=== PATIENT | female | born 1985 | race Two or more races ===

== ENCOUNTER 2025-03-17 03:23 | Emergency (ER) | payer MEDICAID, SELFPAY ==
[2025-03-17 03:24] VITALS: BMI 32.5
[2025-03-17 03:55] VITALS: BP 143/80; PULSE 62; RESP 18; TEMP 36.8; O2SAT 100
[2025-03-17] MEDS: KETOROLAC INJ 60 MG/2 ML VIAL IM (04:33)
--- NOTE | 2025-03-17 05:53 | EDNOTE_ITS ---
<Statement entered by Kimberlee Espinosa MD - 03/18/25 04:32> As co-signing physician, I was present and available for consult prn. I concur with the plan and care as documented by the midlevel provider. Upper Respiratory Inf. RME/HPI General Stated Complaint: THROAT PAIN X 4 DAYS Time Seen by Provider: 03/17/25 04:08 Arrival date/time: 03/17/25 03:23 40F with no significant PMH presents to ED with several days of sore throat. Patient tested positive for strep at the clinic and has been on ABX. Limitations: no limitations Related Data Previous Rx's ?Medication ?Instructions ?Recorded cyclobenzaprine 10 mg tablet 10 mg PO TID #14 tabs ibuprofen 600 mg tablet 600 mg PO QID PRN inflammati on #20 09/14/18 tabs ferrous sulfate 324 mg (65 mg 324 mg PO BID #60 tabs 0 07/16/22 iron) tablet,delayed release Allergies Allergy/AdvReac Type Severity Reaction Status Date / Time No Known Allergies Allergy Verified 07/16/22 07:48 Review of Systems Review of Systems Systems Reviewed: All systems reviewed, normal except as documented Constitutional Constitutional: Reports system reviewed and no additional complaints, except as documented, Denies fever(s) and Denies headache(s) ENT Ears, Nose, Mouth, and Throat: Reports as per HPI, Denies disequilibrium, Denies headache(s) and Reports sore throat Cardiovascular Cardiovascular: Reports system reviewed and no additional complaints, except as documented, Denies chest pain and Denies dyspnea Respiratory Respiratory: Reports system reviewed and no additional complaints, except as documented, Denies cough and Denies dyspnea Gastrointestinal Gastrointestinal: Reports system reviewed and no additional complaints, except as documented, Denies abdominal pain, Denies nausea and Denies vomiting Neurologic Neurologic: Reports system reviewed and no additional complaints, except as documented, Denies confusion, Denies disequilibrium and Denies headache(s) Psychiatric Psychiatric: Denies confusion Past Medical History Past Medical History CARDIAC: Negative Congestive Heart Failure RESPIRATORY: Negative Chronic Obstructive Pulmonary Disease (COPD) GENITOURINARY: Negative Renal Disease ENDOCRINE: Negative Diabetes Mellitus Type 1 or Diabetes Mellitus Type 2 Social History SMOKING STATUS: Never smoker ED Exam General Limitations: Present no limitations General appearance: Present alert and in no apparent distress Head Head exam: Present atraumatic Eye Eye exam: Present normal appearance, PERRL and EOMI ENT ENT exam: Present normal exam, normal oropharynx and mucous membranes moist Neck Neck exam: Present normal inspection, full ROM and trachea midline Chest Chest inspection: Present normal inspection and symmetric chest wall rise Respiratory Respiratory exam: Present normal lung sounds bilaterally Cardiovascular Cardiovascular exam: Present regular rate, normal rhythm and normal heart sounds Abdominal Exam Abdominal exam: Present soft and normal bowel sounds Extremities Exam Extremities exam: Present normal inspection and full ROM Back Exam Back exam: Present normal inspection and full ROM Neurological Exam Neurological exam: Present alert, oriented X3 and CN II-XII intact Psychiatric Psychiatric exam: Present normal affect and normal mood Skin Skin exam: Present warm, dry, intact and normal color Course Quality Measures none Orders Category Date Time Status Ketorolac Inj [Toradol Inj] Med 03/17/25 04:09 Discontinued 60 mg IM X1 ONE Vital Signs Vital signs: Vital Signs Temperature 98.3 F 03/17/25 03:55 Pulse Rate 62 03/17/25 03:55 Respiratory Rate 18 03/17/25 03:55 Blood Pressure 143/80 H 03/17/25 03:55 Pulse Oximetry (%) 100 03/17/25 03:55 Oxygen Delivery Method Room Air 03/17/25 03:55 O2 at 100% on RA and WNLs Upper Respiratory Infection MDM Narrative MDM Narrative:: 40F with no significant PMH presents to ED with several days of sore throat. Patient tested positive for strep at the clinic and has been on ABX. Physical exam reveals unremarkable oropharynx. Patient is afebrile, calm, and alert. Meds and budget counselor given. Patient data External records reviewed:: [facility] previous records Clinical information provided by:: patient Social determinants that could affect healthcare access:: none Patient has the following chronic illnesses:: none How is presenting disease/condition affected by chronic disease/condition?: no chronic disease Evaluation data The following diagnostics were reviewed and interpreted by me:: other (specify) (none) Lab and/or radiology exams considered but not ordered:: not ordered Interpretation Summary: n/a Medications / Prescriptions Medications or Prescriptions considered but not ordered:: ordered Medication administrations:: Medication Administration History Discontinued Medications Ketorolac Tromethamine (Ketorolac Inj 60 Mg/2 Ml Vial) 60 mg IM X1 ONE Stop: 03/17/25 04:10 Last Admin: 03/17/25 04:33 Dose: 60 mg Documented By: OA above Consultations Consultation(s) initiated? (list below): No Diagnosis Upper Respiratory Differential Diagnosis: upper respiratory infection, croup, otitis media, sinusitis, viral infection, bronchitis, influenza and pharyngitis Most likely diagnosis given after review of the tests above:: strep throat Admission Indicated Admission indicated?: not indicated Admission Request Was there a request for admission?: No Disposition Plan Disposition Plan: Discharge Discharge Attestation Discharge Attestation: The patient and all family members were given an opportunity to ask questions and understood the discharge instructions. Discharge instructions specifically effects, indications for sooner follow up or return to the emergency department, and the expected course of current diagnosis. Patient condition: Stable Discharge Plan Plan Patient Disposition: HOME (Self Care) Discharge Disposition comment: Stable Prescriptions/Referrals Prescriptions/Med Rec: No Action cyclobenzaprine 10 mg tablet 10 mg PO TID Qty: 14 0RF ibuprofen 600 mg tablet 600 mg PO QID PRN (Reason: inflammation) Qty: 20 0RF ferrous sulfate 324 mg (65 mg iron) tablet,delayed release (DR/EC) 324 mg PO BID Qty: 60 0RF Problem List Clinical Impression: Acute streptococcal pharyngitis Patient/Caregiver Discharge Instructions Education Materials: ED Pharyngitis, Strep (Confirmed) Additional Instructions: Please follow-up with PCP within 24-48 hours and return immediately if symptoms worsen. Ibuprofen/Tylenol can be used simultaneously for greater fever/pain control. Print Language: Greenlandic Stand Alone Forms: Patient Portal Info Letter PETRONA/ZEINA Supervising Physician PETRONA/ZEINA Supervising Physician: Dr. Espinosa
== END 2025-03-17 04:36 | disposition home or self-care (01) ==
LOC: SERX 04:32
PROVIDERS: Emergency Provider Emergency Medicine; PCP Family Medicine
DX: J02.0 Streptococcal pharyngitis (principal)
CPT/HCPCS: 96372; 99283; J1885

== ENCOUNTER 2025-04-14 05:49 | Emergency (ER) | payer MEDICAID, SELFPAY ==
[2025-04-14 05:51] VITALS: BMI 33.6
[2025-04-14 05:56] VITALS: BP 154/90; PULSE 69; RESP 19; TEMP 36.6; O2SAT 99
--- NOTE | 2025-04-14 06:36 | XR_ITS ---
Examination: CT brain head without contrast. 2-D sagittal coronal reconstructions Date and time of exam:April 14, 2025 at 0640 hours CTDI: vol (mGy):59 DLP: (mGycm):1209 Technique: Multiple CT axial sections of the brain have been obtained, 5 mm slice thickness. Contrast has not been administered. 2-D sagittal, coronal reconstructions have been obtained Low dose protocols were performed. One or more of the following dose reduction techniques were used; automated exposure control, adjustment of the mA and/or KV according to patient size, use of iterative reconstruction technique. Findings: No significant ventricular enlargement. Intra-axial or extra-axial hemorrhage density is not seen. No mass effect or midline shift Basal cisterns are not remarkable. Fourth ventricle is midline. Cranial vault intact. Impression: Negative for acute hemorrhage, mass effect or midline shift
--- NOTE | 2025-04-14 06:36 | XR_ITS ---
Examination: CT cervical spine without contrast 2-D sagittal reconstructions 2-D coronal reconstructions 3-D reconstructions. Exam date and time:April 14, 2025 0640 hours INDICATIONS: Patient fell yesterday with injury to the neck, neck pain CTDI:vol (mGy) 59 DLP: (mGycm) 1209 Technique: Multiple 2 mm axial sections of the cervical spine have been obtained. The coronal and sagittal reconstructions have been obtained. 3-D reconstructions have been obtained. Low dose protocols were performed. One or more of the following dose reduction techniques were used; automated exposure control, adjustment of the mA and/or KV according to patient size, use of iterative reconstruction technique. Findings: Axial sections demonstrate intact base of the skull. C1 exhibit satisfactory relationship to the odontoid. No acute cervical vertebral body fracture seen. Alignment posterior spinous processes satisfactory. Impression: No acute cervical fracture.
--- NOTE | 2025-04-14 06:55 | EDNOTE_ITS ---
<Statement entered by Kimberlee Espinosa MD - 04/24/25 00:57> As co-signing physician, I was present and available for consult prn. I concur with the plan and care as documented by the midlevel provider. ED Fall Injury RME/HPI General Chief Complaint: Fall Stated Complaint: FALL, HEAD INJURY, NECK PAIN Time Seen by Provider: 04/14/25 06:17 Arrival date/time: 04/14/25 05:49 This is a 40-year-old female that comes to the emergency room with complaint of head pain and neck pain after falling off a ladder that was approximately 3 to 4 feet tall. Patient states she fell on tile. Patient reports that she had a positive loss of consciousness. She reports that she does not remember how long she was out. Patient reports history of diabetes. Patient denies any nausea vomiting. Patient complains of pain to the lateral muscles of neck. Patient has no abrasions contusions or lacerations to her head or neck. No focal deficits. Related Data Previous Rx's ?Medication ?Instructions ?Recorded cyclobenzaprine 10 mg tablet 10 mg PO TID #14 tabs ibuprofen 600 mg tablet 600 mg PO QID PRN inflammati on #20 09/14/18 tabs ferrous sulfate 324 mg (65 mg 324 mg PO BID #60 tabs 0 07/16/22 iron) tablet,delayed release cyclobenzaprine 10 mg tablet 10 mg PO HS PRN muscle sp asm #14 04/14/25 tabs ibuprofen 800 mg tablet 800 mg PO Q6H PRN pain #14 t abs 04/14/25 Allergies Allergy/AdvReac Type Severity Reaction Status Date / Time No Known Allergies Allergy Verified 04/14/25 05:50 Review of Systems Review of Systems Systems Reviewed: All systems reviewed, normal except as documented Past Medical History Past Medical History CARDIAC: Negative Congestive Heart Failure RESPIRATORY: Negative Chronic Obstructive Pulmonary Disease (COPD) GENITOURINARY: Negative Renal Disease ENDOCRINE: Negative Diabetes Mellitus Type 1 or Diabetes Mellitus Type 2 Social History SMOKING STATUS: Never smoker ED Exam Narrative Physical exam: VITAL SIGNS: Reviewed. GENERAL APPEARANCE: Alert and interactive, follows commands, no acute distress HEAD AND FACE: Non-traumatic. ENT: PERRL, pink conjunctivitis, eyelid no trauma, Mucous membrane moist.no bleeding in ear canal NECK: Supple, nontender, no nuchal rigidity. CHEST: No tenderness, no crepitus, no paradoxical movement, no retractions. LUNGS: breathing even and unlabored HEART: Regular rate, cap refill less than 2 seconds ABDOMEN: Soft, nondistended, no guarding, nontender, no rebound, no masses, NEUROLOGICAL: Gross motor function intact sensory function intact, Appropriate for age. MUSCULOSKELETAL: low back nontender, full range of motion. EXTREMITIES: No redness no swelling no skin breakdown on bilateral foot and leg. Distal neurovascular status intact bilateral foot SKIN: Color pink, dry, no rash, no lacerations, no abrasions, no contusions. Course Quality Measures none Orders Category Date Time Status Rigid cervical collar PRN Care 04/14/25 06:[address] cervical spine wo con Stat Exams 04/14/25 06:[address] head/brain wo con Stat Exams 04/14/25 06:36 Completed Acetaminophen Tab [Tylenol ES Tab] Med 04/14/25 07:47 Discontinued 1,000 mg PO X1 ONE CYCLObenzaPRINE [Flexeril] Med 04/14/25 07:47 Discontinued 10 mg PO X1 ONE Ketorolac Inj [Toradol Inj] Med 04/14/25 07:47 Discontinued 60 mg IM X1 ONE Ondansetron Odt [Zofran Odt] Med 04/14/25 07:47 Discontinued 4 mg PO X1 ONE Vital Signs Vital signs: Vital Signs Temperature 98 F 04/14/25 05:56 Pulse Rate 69 04/14/25 05:56 Respiratory Rate 19 04/14/25 05:56 Blood Pressure 154/90 H 04/14/25 05:56 Pulse Oximetry (%) 99 04/14/25 05:56 Oxygen Delivery Method Room Air 04/14/25 05:56 Fall MDM Narrative MDM Narrative:: Upon initial arrival patient placed in a c-collar. Patient ambulatory steady gait. CT of head and neck ordered. cervical spine ct: Findings: Axial sections demonstrate intact base of the skull. C1 exhibit satisfactory relationship to the odontoid. No acute cervical vertebral body fracture seen. Alignment posterior spinous processes satisfactory. Impression: No acute cervical fracture. ct head: Findings: No significant ventricular enlargement. Intra-axial or extra-axial hemorrhage density is not seen. No mass effect or midline shift Basal cisterns are not remarkable. Fourth ventricle is midline. Cranial vault intact. Impression: Negative for acute hemorrhage, mass effect or midline shift Today patient had Ct scan. There was no acute fracture seen. Exam appeared unremarkable. I explained to patient at length that if there was continued pain to this area or worsened to come back to ED or see primary provider for more xrays or further testing such as MRI. Ct are not perfect and sometimes serial films needed. Patient verbalized understanding. Patient states they will follow up with primary provider in 1-2 days or come back to ED if symptoms change or worsen. Patient verbalized understanding. Will send patient home with anti-in flammatories and muscle relaxant. Patient data External records reviewed:: [facility] previous records Clinical information provided by:: patient Social determinants that could affect healthcare access:: none Patient has the following chronic illnesses:: see hpi How is presenting disease/condition affected by chronic disease/condition?: no chronic disease Evaluation data The following diagnostics were reviewed and interpreted by me:: radiology exam(s) Lab and/or radiology exams considered but not ordered:: none Interpretation Summary: see note Medications / Prescriptions Medications or Prescriptions considered but not ordered:: none Medication administrations:: Medication Administration History Discontinued Medications Acetaminophen (Acetaminophen 500 Mg Tablet) 1,000 mg PO X1 ONE Stop: 04/14/25 07:48 Last Admin: 04/14/25 08:03 Dose: 1,000 mg Documented By: Cyclobenzaprine HCl (Cyclobenzaprine 5 Mg Tablet) 10 mg PO X1 ONE Stop: 04/14/25 07:48 Last Admin: 04/14/25 08:03 Dose: 10 mg Documented By: Ketorolac Tromethamine (Ketorolac Inj 60 Mg/2 Ml Vial) 60 mg IM X1 ONE Stop: 04/14/25 07:48 Last Admin: 04/14/25 08:04 Dose: 60 mg Documented By: Ondansetron HCl (Ondansetron Odt 4 Mg Tabrap) 4 mg PO X1 ONE; Protocol Stop: 04/14/25 07:48 Last Admin: 04/14/25 08:04 Dose: 4 mg Documented By: LEANDRO see [facility] Consultations Consultation(s) initiated? (list below): No Diagnosis Fall Differential Diagnosis: compression fracture, concussion with loss of consciousness and other (head bleed, cervical fracture ) Most likely diagnosis given after review of the tests above:: head injury Admission Indicated Admission indicated?: not indicated Admission Request Was there a request for admission?: No Disposition Plan Disposition Plan: Discharge Discharge Attestation Discharge Attestation: The patient and all family members were given an opportunity to ask questions and understood the discharge instructions. Discharge instructions specifically effects, indications for sooner follow up or return to the emergency department, and the expected course of current diagnosis. Patient condition: Stable Discharge Plan Plan Patient Disposition: HOME (Self Care) Patient condition on transfer: Stable Prescriptions/Referrals Prescriptions/Med Rec: New cyclobenzaprine 10 mg tablet 10 mg PO HS PRN (Reason: muscle spasm) Qty: 14 0RF ibuprofen 800 mg tablet 800 mg PO Q6H PRN (Reason: pain) Qty: 14 0RF No Action cyclobenzaprine 10 mg tablet 10 mg PO TID Qty: 14 0RF ibuprofen 600 mg tablet 600 mg PO QID PRN (Reason: inflammation) Qty: 20 0RF ferrous sulfate 324 mg (65 mg iron) tablet,delayed release (DR/EC) 324 mg PO BID Qty: 60 0RF Referrals: Rolan Deras MD [Primary Care Provider] - In 1 week Problem List Clinical Impression: Fall from ladder, Contusion of neck, Contusion of head Patient/Caregiver Discharge Instructions Discharge Activity: activity as tolerated Education Materials: Bruises (Contusions), ED Head Injury (Adult) Additional Instructions: [place] un yvon con singleton medico de cabecera en las proximas 24-48 horas. Regrese a la brenda de emergencias si hay evidencia de que los signos o sintomas empeoran. Print Language: Chinese Stand Alone Forms: Jackie Award Info., Patient Portal Info Letter PA/ZEINA Supervising Physician PA/ZEINA Supervising Physician: monique
[2025-04-14] MEDS: ACETAMINOPHEN 500 MG TABLET 1000 MG PO (08:03)
[2025-04-14] MEDS: CYCLObenzaPRINE 5 MG TABLET 10 MG PO (08:03)
[2025-04-14] MEDS: ONDANSETRON ODT 4 MG TABRAP PO (08:04)
[2025-04-14] MEDS: KETOROLAC INJ 60 MG/2 ML VIAL IM (08:04)
== END 2025-04-14 08:27 | disposition home or self-care (01) ==
PROVIDERS: Emergency Provider Emergency Medicine; PCP Family Medicine
DX: S00.93XA Contusion of unspecified part of head, initial encounter (principal); S10.93XA Contusion of unspecified part of neck, initial encounter; W11.XXXA Fall on and from ladder, initial encounter; E11.9 Type 2 diabetes mellitus without complications
CPT/HCPCS: 70450; 72125; 96372; 99284; J1885; Q0162; A9270

== ENCOUNTER 2025-10-19 18:20 | Emergency (ER) | payer MEDICAID, SELFPAY ==
[2025-10-19 18:21] VITALS: BMI 31.4
[2025-10-19 19:29] VITALS: BP 123/64; PULSE 68; RESP 18; TEMP 37; O2SAT 99
--- NOTE | 2025-10-19 19:56 | EDNOTE_ITS ---
Upper Extremity Injury RME/HPI General Chief Complaint: Back Pain/Injury Stated Complaint: MID BACK PAIN & R ARM PAIN X1 WEEK Time Seen by Provider: 10/19/25 19:35 Arrival date/time: 10/19/25 18:20 40F with no significant PMH presents to ED with 5 days of R shoulder pain w/o fall/trauma that radiates down RUE and back. Patient works in the field. Limitations: no limitations Related Data Previous Rx's ?Medication ?Instructions ?Recorded cyclobenzaprine 10 mg tablet 10 mg PO TID #14 tabs ibuprofen 600 mg tablet 600 mg PO QID PRN inflammati on #20 09/14/18 tabs ferrous sulfate 324 mg (65 mg 324 mg PO BID #60 tabs 0 07/16/22 iron) tablet,delayed release cyclobenzaprine 10 mg tablet 10 mg PO HS PRN muscle sp asm #14 04/14/25 tabs ibuprofen 800 mg tablet 800 mg PO Q6H PRN pain #14 t abs 04/14/25 Allergies Allergy/AdvReac Type Severity Reaction Status Date / Time No Known Allergies Allergy Verified 10/19/25 18:24 Review of Systems Review of Systems Systems Reviewed: All systems reviewed, normal except as documented Musculoskeletal Musculoskeletal: Reports as per HPI and Reports arthralgias Past Medical History Past Medical History CARDIAC: Negative Congestive Heart Failure RESPIRATORY: Negative Chronic Obstructive Pulmonary Disease (COPD) GENITOURINARY: Negative Renal Disease ENDOCRINE: Negative Diabetes Mellitus Type 1 or Diabetes Mellitus Type 2 Social History SMOKING STATUS: Never smoker ED Exam General Limitations: Present no limitations General appearance: Present alert and in no apparent distress Head Head exam: Present atraumatic Neck Neck exam: Present normal inspection, full ROM and trachea midline Chest Chest inspection: Present normal inspection and symmetric chest wall rise Extremities Exam Extremities exam: Present normal inspection and full ROM Neurological Exam Neurological exam: Present alert and oriented X3 Psychiatric Psychiatric exam: Present normal affect and normal mood Skin Skin exam: Present warm, dry, intact and normal color Course Quality Measures none Orders Category Date Time Status sling [Splint / Immobilizer] STAT Care 10/19/25 19:36 Active HYDROcodone*/APAP 5/325 [[place] 5/325] Med 10/19/25 19:36 Discontinued 1 tab PO X1 ONE dexAMETHasone INJ [Decadron Inj] Med 10/19/25 19:36 Discontinued 10 mg PO X1 ONE Vital Signs Vital signs: Vital Signs Temperature 98.6 F 10/19/25 19:29 Pulse Rate 68 10/19/25 19:29 Respiratory Rate 18 10/19/25 19:29 Blood Pressure 123/64 10/19/25 19:29 Pulse Oximetry (%) 99 10/19/25 19:29 Oxygen Delivery Method Room Air 10/19/25 19:29 O2 at 99% on RA and WNLs Extremity Injury MDM Narrative MDM Narrative:: 40F with no significant PMH presents to ED with 5 days of R shoulder pain w/o fall/trauma that radiates down RUE and back. Patient works in the field. Physical exam reveals intact ROM of R shoulder. RUE motion normal. No obvious swelling or redness. Normal WOB. Patient is afebrile, calm, and alert. Pain is improved while in a sling position, so given sling, meds, and career placement services counselor. Patient data External records reviewed:: [facility] previous records Clinical information provided by:: patient Social determinants that could affect healthcare access:: none Patient has the following chronic illnesses:: none How is presenting disease/condition affected by chronic disease/condition?: no chronic disease Evaluation data The following diagnostics were reviewed and interpreted by me:: other (specify) (none) Lab and/or radiology exams considered but not ordered:: not ordered Interpretation Summary: n/a Medications / Prescriptions Medications or Prescriptions considered but not ordered:: ordered Medication administrations:: Medication Administration History Discontinued Medications Hydrocodone Bitart/Acetaminophen (Hydrocodone/Apap 5/325 Tablet) 1 tab PO X1 ONE Stop: 10/19/25 19:37 Dexamethasone Sodium Phosphate (Dexamethasone Sod Phos Inj 10 Mg/Ml Vial) 10 mg PO X1 ONE Stop: 10/19/25 19:37 above Consultations Consultation(s) initiated? (list below): No Diagnosis Upper Extremity Injury Differential Diagnosis: dislocation of shoulder, fracture of humerus, fracture of clavicle and other (shoulder pain) Most likely diagnosis given after review of the tests above:: shoulder pain Admission Indicated Admission indicated?: not indicated Admission Request Was there a request for admission?: No Disposition Plan Disposition Plan: Discharge Discharge Attestation Discharge Attestation: The patient and all family members were given an opportunity to ask questions and understood the discharge instructions. Discharge instructions specifically effects, indications for sooner follow up or return to the emergency department, and the expected course of current diagnosis. Patient condition: Stable Discharge Plan Plan Patient Disposition: HOME (Self Care) Discharge Disposition comment: Stable Prescriptions/Referrals Prescriptions/Med Rec: No Action cyclobenzaprine 10 mg tablet 10 mg PO TID Qty: 14 0RF ibuprofen 600 mg tablet 600 mg PO QID PRN (Reason: inflammation) Qty: 20 0RF ferrous sulfate 324 mg (65 mg iron) tablet,delayed release (DR/EC) 324 mg PO BID Qty: 60 0RF cyclobenzaprine 10 mg tablet 10 mg PO HS PRN (Reason: muscle spasm) Qty: 14 0RF ibuprofen 800 mg tablet 800 mg PO Q6H PRN (Reason: pain) Qty: 14 0RF Problem List Clinical Impression: Shoulder joint pain Patient/Caregiver Discharge Instructions Education Materials: ED Arthralgia Additional Instructions: Please follow-up with PCP within 24-48 hours and return immediately if symptoms worsen. If problem persists, recommend outpatient PT and/or MRI follow-up. In the meantime, rest, use ice/heat, and/or compression. Ibuprofen/Tylenol can be used simultaneously for greater fever/pain control. Print Language: Danish Stand Alone Forms: Patient Portal Info Letter PETRONA/ZEINA Supervising Physician PETRONA/ZEINA Supervising Physician: Dr. Shah
[2025-10-19] MEDS: HYDROcodone/APAP 5/325 TABLET 1 TAB PO (19:58)
== END 2025-10-19 20:10 | disposition home or self-care (01) ==
LOC: SERX 20:25
PROVIDERS: Emergency Provider Emergency Medicine; PCP Family Medicine
DX: M25.511 Pain in right shoulder (principal)
CPT/HCPCS: 99281; A4565; J1100; A9270